=== PATIENT | female | born 1995 | race Caucasian/White ===

== ENCOUNTER 2016-12-15 19:09 | Emergency (ER) | payer OTHER ==
[~2016-12-15] VITALS: Ht 152.4 cm; Wt 51.0 kg
[2016-12-15 19:46] LABS: ASPARTATE AMINO TRANSFERASE 11 U/L (15-37); BLOOD UREA NITROGEN 15 mg/dL (7-18)
[2016-12-15] MEDS ORDERED: CYCL-259 PO (20:01)
[2016-12-15] MEDS ORDERED: BIRTH CONTROL PO (20:01)
[2016-12-15] MEDS ORDERED: TRAM50TA2 PO (20:01)
[2016-12-15] MEDS ORDERED: ALPR-475 PO ×2 (20:01)
[2016-12-15] MEDS ORDERED: ALBU6.7H INH (20:03)
[2016-12-15] MEDS ORDERED: HYDROcodone/APAP 5/325 TABLET ONE (21:15)
[2016-12-15 21:18] VITALS: BP 112/76
[2016-12-15] MEDS ORDERED: HYDROcodone/APAP 5/325 TABLET PO ONE (21:30)
== END 2016-12-15 21:29 | disposition home or self-care (01) ==
LOC: ED 21:00
DX: N30.90 Cystitis, unspecified without hematuria (principal); J45.909 Unspecified asthma, uncomplicated
CPT/HCPCS: 36415; 76830; 80053; 81001; 84703; 85025; 87086; 99285